=== PATIENT | male | born 1960 | race Caucasian/White ===

== ENCOUNTER 2017-05-06 14:34 | Emergency (ER) | payer OTHER, BC ==
[~2017-05-06] VITALS: Ht 175.3 cm; Wt 84.8 kg
[2017-05-06] MEDS ORDERED: FLEXERIL10 MG PO (17:59)
[2017-05-06] MEDS ORDERED: NAPROSYN500 MG PO (17:59)
[2017-05-06] MEDS ORDERED: ULTRAM50 MG PO (17:59)
[2017-05-06 18:30] VITALS: BP 142/88
== END 2017-05-06 18:31 | disposition home or self-care (01) ==
LOC: EME 14:34
DX: S43.402A Unspecified sprain of left shoulder joint, initial encounter (principal); W00.0XXA Fall on same level due to ice and snow, initial encounter; Z88.0 Allergy status to penicillin
CPT/HCPCS: 73030; 99281; 99284